=== PATIENT | female | born 1950 | race Caucasian/White ===

== ENCOUNTER → 2020-01-02 12:42 | Outpatient (CLI) | payer MEDICARE, OTHER, SELFPAY ==
[2020-01-02 14:01] LABS: Free T4, Direct Thyroxine 1.84 ng/dL (0.78-2.19)
[2020-01-02 14:15] LABS: Thyroid Stimulating Hormone 1.52 uIU/mL (0.47-4.68)
== END ==
PROVIDERS: PCP Internal Medicine; Referring Provider Internal Medicine; Visit Provider Internal Medicine
DX: Z51.81 Encounter for therapeutic drug level monitoring (principal); E03.9 Hypothyroidism, unspecified
CPT/HCPCS: 36415; 84439; 84443

== ENCOUNTER → 2024-06-26 07:44 | Outpatient (CLI) | payer MEDICARE, OTHER, SELFPAY ==
--- NOTE | 2024-06-26 | DI.ECHO.S_ITS ---
[facility] : : [address] : : [place] : : [id number] : : Phone: [phone] Echocardiogram Report + + :Name: STEPHAN NEGRETE Study Date: 06/26/2024 Height: 64 in : :[facility] ReadingLocation: Weight: 175 lb : : Gender: Female BSA: 1.8 m2 : :: 1950 Age: 74 yrs BP: 198/113 mmHg: :Reason For Study: MURMUR : :Ordering Physician: LYSSA, : :GALDINO Livingston Performed By: Naveen Kinney : :Referring: [id number] : + + Interpretation Summary The left ventricle is normal in size. The left ventricular ejection fraction is normal. The ejection fraction is estimated to be 55-60%. The right ventricle is normal size. The right ventricular systolic function is normal. The aortic valve is moderately calcified. There is moderately reduced leaflet mobility. The peak aortic velocity is 2.65 m/sec. The aortic valve mean gradient is 17 mmHg. sev ratio: 0.44 QUANG(I,D): 1.8 cm2. Overall mild to moderate aortic stenosis. There is mild tricuspid regurgitation. The right ventricular systolic pressure is estimated to be at least 29.4 mmHg based on an estimated right atrial pressure of 3 mm Hg. Mild atherosclerotic plaque(s) in the aortic arch. BP: 198/113 mmHg Procedure: A two-dimensional transthoracic echocardiogram with color flow and Doppler was performed. The study quality was technically adequate. There is no prior echocardiogram noted for this patient. The patient was in sinus rhythm with heart rates between 59-64 bpm during the exam. Left Ventricle: The left ventricle is normal in size. Left ventricular wall thickness is mildly increased. Proximal septal thickening is noted. There is no echo evidence for significant left ventricular outflow tract obstruction. There is no thrombus. The ejection fraction is estimated to be 55-60%. The left ventricular ejection fraction is normal. There are no focal wall motion abnormalities. MV E/A: 1.1 Med Peak E' Jett: 5.2 cm/sec E/E' med: 18.6. Right Ventricle: The right ventricle is normal size. The right ventricular systolic function is normal. Atria: The left atrium is borderline dilated. Right atrial size is normal. The interatrial septum grossly appears intact with no obvious evidence for an atrial septal defect. Mitral Valve: MAC. There is mild to moderate mitral annular calcification. There is no mitral valve stenosis. There is trace mitral regurgitation. Aortic Valve: The aortic valve is trileaflet. The aortic valve is moderately calcified. There is moderately reduced leaflet mobility. There is mild aortic stenosis. The peak aortic velocity is 2.65 m/sec. The aortic valve mean gradient is 17 mmHg. No aortic regurgitation is present. Tricuspid Valve: The tricuspid valve is normal. There is mild tricuspid regurgitation. The right ventricular systolic pressure is estimated to be at least 29.4 mmHg based on an estimated right atrial pressure of 3 mm Hg. Pulmonic Valve: The pulmonic valve is not well visualized. There is no pulmonic valvular stenosis. There is a trace or physiologic amount of pulmonic regurgitation. Great Vessels: The aortic root is normal size. The ascending aorta is at the upper limits of normal in size. Mild atherosclerotic plaque(s) in the aortic arch. The IVC is of normal diameter and collapses greater than 50% with a sniff. This suggests a low right atrial pressure of 3 mm Hg. Pericardium/ Pleura There is no pericardial effusion. There is no pleural effusion. MMode/2D Measurements & Calculations LVIDd: 4.2 cm LVOT diam: 2.3 cm LVIDs: 2.9 cm Ao root diam: 3.0 cm FS: 30.6 % asc Aorta Diam: 3.7 cm IVSd: 1.4 cm LVPWd: 1.1 cm LV blake. diameter/BSA (cm/m^2): 2.3 LV sys. diameter/BSA (cm/m^2): 1.6 LA A2 area: 19.8 cm2 RA long axis: 5.8 cm LA A4 area: 21.2 cm2 RA area: 18.6 cm2 LA length (vol): 5.7 cm RA vol: 50.9 ml LA vol: 62.4 ml RA : 27.5 ml/m2 LA vol index: 33.8 ml/m2 IVC diam: 1.4 cm RVD1 (basal): 3.6 cm RVD2 (mid): 2.9 cm TAPSE: 1.5 cm Doppler Measurements & Calculations Ao V2 max: 264.6 cm/sec LVOT Max Jett: 118.3 cm/sec Ao V2 mean: 194.6 cm/sec LV V1 max P.6 mmHg Ao max P.0 mmHg LV V1 VTI: 30.7 cm Ao mean P.0 mmHg QUANG(I,D): 1.8 cm2 Ao V2 VTI: 70.4 cm QUANG(V,D): 1.8 cm2 sev ratio: 0.44 QUANG indexed to BSA (cm^2/m^2): 0.96 MV E max jett: 97.2 cm/sec TR max jett: 257.1 cm/sec MV A max jett: 90.0 cm/sec TR max P.4 mmHg MV E/A: 1.1 PA V2 max: 97.7 cm/sec Med Peak E' Jett: 5.2 cm/sec PA V2 mean: 76.1 cm/sec E/E' med: 18.6 PA mean P.5 mmHg Lat Peak E' Jett: 6.9 cm/sec PA pr(Accel): 34.5 mmHg E/E' lat: 14.0 E/e' average: 16.3 MV dec time: 0.22 sec SV(LVOT): 124.5 ml Reading Physician:11:26 AM
== END ==
PROVIDERS: PCP Physician Assistant Medical; Referring Provider Family Medicine; Visit Provider Family Medicine
DX: R01.1 Cardiac murmur, unspecified (principal); I08.3 Combined rheumatic disorders of mitral, aortic and tricuspid valves; I70.0 Atherosclerosis of aorta
CPT/HCPCS: 93306